=== PATIENT | female | born 1950 | race Caucasian/White ===

== ENCOUNTER 2018-01-15 15:09 | Inpatient (IN) | payer MEDICARE ==
[~2018-01-15] VITALS: Ht 144.8 cm; Wt 52.6 kg
[2018-01-15] MEDS ORDERED: LORazepam 2 MG TABLET PO PRN (19:15)
[2018-01-15] MEDS ORDERED: HALOPERIDOL 5 MG TABLET PO PRN (19:15)
[2018-01-15] MEDS ORDERED: ZOLPIDEM TARTRATE 10 MG TABLET PO PRN (19:15)
[2018-01-15 20:21] LABS: BASOPHILS % (AUTO) 0.5 % (0.0-2.0); EOSINOPHILS % (AUTO) 0.1 % (1.0-6.0); HEMATOCRIT 38.6 % (36-46); HEMOGLOBIN 13.2 g/dL (12.0-16.0); LYMPHOCYTES # (AUTO) 1.4 K/uL (1.0-4.8); LYMPHOCYTES % (AUTO) 22.9 % (22.0-44.0); MEAN CORPUSCULAR HEMOGLOBIN 29.4 pg (26.0-34.0); MEAN CORPUSCULAR HGB CONC 34.3 G/dL (31.0-37.0); MEAN CORPUSCULAR VOLUME 86 fL (80-100); MONOCYTES # (AUTO) 0.4 K/uL (0.1-1.0); MONOCYTES % (AUTO) 6.6 % (2.0-9.0); NEUTROPHILS # (AUTO) 4.2 K/uL (1.8-7.7); NEUTROPHILS % (AUTO) 69.9 % (40.0-70.0); PLATELET COUNT (AUTO) 168 K/uL (150-450); RED CELL DISTRIBUTION WIDTH 13.2 % (11.5-14.5)
[2018-01-15 20:43] VITALS: BP 132/84
[2018-01-15 20:45] LABS: ANION GAP 7 mmol/L (8-16); CALCIUM, TOTAL 8.9 mg/dL (8.8-10.5); CARBON DIOXIDE 30 mmol/L (22-29); CHLORIDE 106 mmol/L (98-107); CREATININE 0.73 mg/dL (0.60-1.30); GLOMERULAR FILTR. RATE CALC > 60 mL/min (>60); GLUCOSE,RANDOM 93 mg/dL (70-110); POTASSIUM 3.6 mmol/L (3.5-5.1); SODIUM SERUM 143 mmol/L (136-145); UREA NITROGEN, BLOOD 16 mg/dL (7-18)
[2018-01-15 20:49] LABS: ALANINE AMINOTRANSFERASE 23 U/L (12-78); ALBUMIN 3.8 g/dL (3.4-5.0); ALKALINE PHOSPHATASE 104 U/L (46-116); ASPARTATE AMINOTRANSFERASE 24 U/L (15-37); BILIRUBIN,TOTAL 0.7 mg/dL (0.1-1.0); TOTAL PROTEIN, SERUM 7.3 g/dL (6.4-8.2)
[2018-01-15] MEDS ORDERED: PNEUMOCOCCAL VACCINE POLYVALENT 0.5 ML VIAL [PPSV23] IM ONE (21:15)
[2018-01-15] MEDS ORDERED: INFLUENZA VIRUS VACCINE QVS 2017-18 (3YR+)/PF 60 MCG/0.5 ML SYRINGE IM ONE (21:15)
[2018-01-16 06:54] VITALS: BP 135/78
[2018-01-16 06:55] VITALS: BP 112/66
[2018-01-16] MEDS ORDERED: ACETAMINOPHEN 325 MG TABLET PO PRN (09:30)
[2018-01-16] MEDS ORDERED: IBUPROFEN 400 MG TABLET PO PRN (09:30)
[2018-01-16 16:57] VITALS: BP 110/78
[2018-01-16] MEDS: OLANZapine 2.5 MG TABLET PO SCH (17:14)
[2018-01-17 02:03] VITALS: BP 117/72
[2018-01-17 08:01] VITALS: BP 115/65
[2018-01-17] MEDS: OLANZapine 2.5 MG TABLET PO SCH ×2 (09:09→16:11)
[2018-01-17 19:05] VITALS: BP 110/65
[2018-01-18 06:00] VITALS: BP 111/65
[2018-01-18] MEDS: OLANZapine 2.5 MG TABLET PO SCH ×3 (09:00→17:00)
[2018-01-18] MEDS: LORazepam 0.5 MG TABLET PO SCH ×2 (09:45→17:00)
[2018-01-18 16:01] VITALS: BP 114/76
[2018-01-19] MEDS: LORazepam 0.5 MG TABLET PO SCH ×2 (09:00→17:21)
[2018-01-19] MEDS: OLANZapine 2.5 MG TABLET PO SCH ×2 (09:00→17:21)
[2018-01-19 16:34] VITALS: BP 141/77
[2018-01-20 01:38] VITALS: BP 124/76
[2018-01-20 08:43] VITALS: BP 120/74
[2018-01-20] MEDS: OLANZapine 2.5 MG TABLET PO SCH (08:56)
[2018-01-20] MEDS: LORazepam 0.5 MG TABLET PO SCH ×2 (08:56→17:00)
[2018-01-20 16:38] VITALS: BP 110/68
[2018-01-20] MEDS ORDERED: OLANZapine 5 MG TABLET PO SCH (21:00)
[2018-01-21 08:00] VITALS: BP 132/83
[2018-01-21] MEDS: LORazepam 0.5 MG TABLET PO SCH (08:59)
[2018-01-21 16:10] VITALS: BP 111/67
[2018-01-21] MEDS: LORazepam 1 MG TABLET PO SCH (17:00)
[2018-01-21] MEDS: OLANZapine 10 MG TABLET PO SCH (21:00)
[2018-01-22 07:24] VITALS: BP 125/72
[2018-01-22] MEDS: LORazepam 1 MG TABLET PO SCH ×2 (08:32→16:54)
[2018-01-22 08:33] VITALS: BP 129/77
[2018-01-22 16:18] VITALS: BP 125/73
[2018-01-22] MEDS: OLANZapine 10 MG TABLET PO SCH (20:21)
[2018-01-23 06:57] VITALS: BP 115/79
[2018-01-23 08:14] VITALS: BP 112/69
[2018-01-23] MEDS: LORazepam 1 MG TABLET PO SCH ×2 (12:03→18:01)
[2018-01-23 16:53] VITALS: BP 116/66
[2018-01-23] MEDS: OLANZapine 10 MG TABLET PO SCH (20:55)
[2018-01-24 00:21] VITALS: BP 112/69
[2018-01-24] MEDS: LORazepam 1 MG TABLET PO SCH ×2 (09:19→17:00)
[2018-01-24] MEDS: OLANZapine 10 MG TABLET PO SCH (20:42)
[2018-01-25 00:14] VITALS: BP 117/68
[2018-01-25 08:23] VITALS: BP 124/81
[2018-01-25] MEDS: LORazepam 1 MG TABLET PO SCH ×2 (08:34→19:48)
[2018-01-25 16:17] VITALS: BP 110/64
[2018-01-25] MEDS: OLANZapine 10 MG TABLET PO SCH (20:30)
[2018-01-26 02:53] VITALS: BP 117/63
[2018-01-26] MEDS: LORazepam 1 MG TABLET PO SCH ×2 (08:29→17:00)
[2018-01-26 08:38] VITALS: BP 119/74
[2018-01-26 16:04] VITALS: BP 124/67
[2018-01-26] MEDS: OLANZapine 10 MG TABLET PO SCH (21:00)
[2018-01-27 05:52] VITALS: BP 118/63
[2018-01-27 08:33] VITALS: BP 129/75
[2018-01-27] MEDS: LORazepam 1 MG TABLET PO SCH ×2 (09:01→16:50)
[2018-01-27 16:00] VITALS: BP 139/77
[2018-01-27] MEDS: OLANZapine 10 MG TABLET PO SCH (20:53)
[2018-01-28 06:24] VITALS: BP 114/61
[2018-01-28] MEDS: LORazepam 1 MG TABLET PO SCH ×2 (08:46→17:10)
[2018-01-28] MEDS: OLANZapine 10 MG TABLET PO SCH (09:57)
[2018-01-28 13:04] VITALS: BP 114/66
[2018-01-28 16:07] VITALS: BP 137/89
[2018-01-29 04:35] VITALS: BP 140/80
[2018-01-29] MEDS: LORazepam 1 MG TABLET PO SCH ×2 (08:04→16:57)
[2018-01-29] MEDS: OLANZapine 10 MG TABLET PO SCH (08:04)
[2018-01-29 08:15] VITALS: BP_SYST 107; BP_SYST 120; BP_DIAS 30; BP_DIAS 61
[2018-01-29] MEDS ORDERED: OLANZapine 10 MG TABLET PO SCH (09:00)
[2018-01-29] MEDS ORDERED: DOCUSATE SODIUM 100 MG CAPSULE PO PRN (13:30)
[2018-01-29 16:11] VITALS: BP 127/66
[2018-01-30 05:59] VITALS: BP 124/74
[2018-01-30] MEDS: OLANZapine 10 MG TABLET PO SCH (08:03)
[2018-01-30] MEDS: LORazepam 1 MG TABLET PO SCH ×2 (08:03→16:15)
[2018-01-30 08:30] VITALS: BP 103/62
[2018-01-30 16:01] VITALS: BP 127/71
[2018-01-31 05:26] VITALS: BP 124/87
[2018-01-31] MEDS: LORazepam 1 MG TABLET PO SCH ×2 (08:08→17:05)
[2018-01-31] MEDS: OLANZapine 10 MG TABLET PO SCH (08:08)
[2018-01-31 08:16] VITALS: BP 124/68
[2018-01-31 16:06] VITALS: BP 123/73
[2018-02-01 02:52] VITALS: BP 117/66
[2018-02-01 08:22] VITALS: BP 120/66
[2018-02-01] MEDS: OLANZapine 10 MG TABLET PO SCH (08:23)
[2018-02-01] MEDS: LORazepam 1 MG TABLET PO SCH (08:23)
[2018-02-01] MEDS ORDERED: OLAN10TA3 PO (13:10)
[2018-02-01] MEDS ORDERED: LORA1TAB3 PO (13:10)
== END 2018-02-01 14:30 | disposition home or self-care (01) | DRG 885 ==
LOC: EMS 15:11 → B3A 19:26
PROVIDERS: ADMIT Psychiatry & Neurology Child & Adolescent Psychiatry; ATTEND Psychiatry & Neurology Child & Adolescent Psychiatry
DX: F28 Other psychotic disorder not due to a substance or known physiological condition (principal); F06.1 Catatonic disorder due to known physiological condition; Z91.19 Patient's noncompliance with other medical treatment and regimen; G47.00 Insomnia, unspecified; K59.00 Constipation, unspecified; R45.87 Impulsiveness; F41.9 Anxiety disorder, unspecified; F94.0 Selective mutism
CPT/HCPCS: 90471; 99285; G0480